=== PATIENT | male | born 1965 | race African-American/Black ===

== ENCOUNTER 2017-01-23 22:47 | Emergency (ER) | payer MEDICAID, OTHER ==
[~2017-01-23] VITALS: Ht 162.6 cm; Wt 84.1 kg
[~2017-01-23 22:47] MED LIST: BENZ1TAB10 PO; LURA40 PO; LURA80 PO; METF500T4 PO; METO50 PO
[2017-01-23 22:57] LABS: GLUCOSE,POINT OF CARE 164 MG/DL (70-110)
[2017-01-23 23:35] LABS: BASOPHILS % (AUTO) 0.3 % (0.0-2.0); EOSINOPHILS % (AUTO) 4.8 % (1.0-6.0); HEMATOCRIT 36.9 % (41-53); HEMOGLOBIN 12.3 g/dL (13.5-17.5); LYMPHOCYTES # (AUTO) 2.6 K/uL (1.0-4.8); MEAN CORPUSCULAR HEMOGLOBIN 28.3 pg (26.0-34.0); MEAN CORPUSCULAR HGB CONC 33.2 G/dL (31.0-37.0); MEAN CORPUSCULAR VOLUME 85 fL (80-100); MONOCYTES # (AUTO) 0.5 K/uL (0.1-1.0); MONOCYTES % (AUTO) 8.8 % (2.0-9.0); NEUTROPHILS # (AUTO) 2.4 K/uL (1.8-7.7); NEUTROPHILS % (AUTO) 41.1 % (40.0-70.0); PLATELET COUNT (AUTO) 211 K/uL (150-450); RED BLOOD CELL COUNT(AUTO) 4.32 MIL/uL (4.50-5.90); RED CELL DISTRIBUTION WIDTH 12.9 % (11.5-14.5); WHITE BLOOD COUNT (AUTO) 5.7 K/uL (4.5-11.0)
[2017-01-23 23:37] LABS: ANION GAP 10 mmol/L (8-16); CALCIUM, TOTAL 8.9 mg/dL (8.8-10.5); CARBON DIOXIDE 24 mmol/L (22-29); CHLORIDE 105 mmol/L (98-107); CREATININE 1.38 mg/dL (0.60-1.30); GLOMERULAR FILTR. RATE CALC > 60 mL/min (>60); POTASSIUM 3.7 mmol/L (3.5-5.1); SODIUM SERUM 139 mmol/L (136-145); UREA NITROGEN, BLOOD 11 mg/dL (7-18)
[2017-01-23 23:43] LABS: ALANINE AMINOTRANSFERASE 28 U/L (12-78); ALBUMIN 3.4 g/dL (3.4-5.0); ASPARTATE AMINOTRANSFERASE 18 U/L (15-37); BILIRUBIN,TOTAL 0.3 mg/dL (0.1-1.0); TOTAL PROTEIN, SERUM 7.4 g/dL (6.4-8.2)
[2017-01-24] MEDS ORDERED: HALOPERIDOL 5 MG TABLET PO ONE (00:30)
[2017-01-24 00:40] VITALS: BP 118/81
== END 2017-01-24 01:16 | disposition home or self-care (01) ==
LOC: EMS 22:48
DX: F25.9 Schizoaffective disorder, unspecified (principal); E11.9 Type 2 diabetes mellitus without complications; F41.9 Anxiety disorder, unspecified; F17.210 Nicotine dependence, cigarettes, uncomplicated; I10 Essential (primary) hypertension; K21.9 Gastro-esophageal reflux disease without esophagitis; Z88.0 Allergy status to penicillin
CPT/HCPCS: 36415; 80053; 80307; 82962; 85025; 99284; G0480

== ENCOUNTER 2017-03-15 19:35 | Emergency (ER) | payer OTHER | END 2017-03-15 21:08 | disposition left against medical advice (07) | LOC: EMS 19:39 | DX: Z53.21 Procedure and treatment not carried out due to patient leaving prior to being seen by health care provider (principal) ==

== ENCOUNTER 2017-03-15 22:31 | Emergency (ER) | payer OTHER ==
[~2017-03-15] VITALS: Ht 165.1 cm; Wt 65.5 kg
[2017-03-15 23:23] LABS: EOSINOPHILS % (AUTO) 3.1 % (1.0-6.0); HEMATOCRIT 37.9 % (41-53); HEMOGLOBIN 12.8 g/dL (13.5-17.5); LYMPHOCYTES # (AUTO) 2.1 K/uL (1.0-4.8); LYMPHOCYTES % (AUTO) 31.3 % (22.0-44.0); MEAN CORPUSCULAR HGB CONC 33.9 G/dL (31.0-37.0); MEAN CORPUSCULAR VOLUME 86 fL (80-100); MONOCYTES # (AUTO) 0.7 K/uL (0.1-1.0); NEUTROPHILS # (AUTO) 3.6 K/uL (1.8-7.7); NEUTROPHILS % (AUTO) 54.6 % (40.0-70.0); PLATELET COUNT (AUTO) 248 K/uL (150-450); RED BLOOD CELL COUNT(AUTO) 4.42 MIL/uL (4.50-5.90); RED CELL DISTRIBUTION WIDTH 12.8 % (11.5-14.5); WHITE BLOOD COUNT (AUTO) 6.6 K/uL (4.5-11.0)
[2017-03-15 23:31] LABS: ANION GAP 11 mmol/L (8-16); CALCIUM, TOTAL 9.2 mg/dL (8.8-10.5); CARBON DIOXIDE 24 mmol/L (22-29); CHLORIDE 105 mmol/L (98-107); CREATININE 1.24 mg/dL (0.60-1.30); GLOMERULAR FILTR. RATE CALC > 60 mL/min (>60); POTASSIUM 3.7 mmol/L (3.5-5.1); SODIUM SERUM 140 mmol/L (136-145); UREA NITROGEN, BLOOD 15 mg/dL (7-18)
[2017-03-15 23:36] LABS: ALANINE AMINOTRANSFERASE 28 U/L (12-78); ALBUMIN 3.7 g/dL (3.4-5.0); ASPARTATE AMINOTRANSFERASE 17 U/L (15-37); BILIRUBIN,TOTAL 0.4 mg/dL (0.1-1.0)
[2017-03-16 01:49] VITALS: BP 127/72
== END 2017-03-16 01:53 | disposition home or self-care (01) ==
LOC: EMS 22:32
DX: F41.9 Anxiety disorder, unspecified (principal); E11.9 Type 2 diabetes mellitus without complications; I10 Essential (primary) hypertension; K21.9 Gastro-esophageal reflux disease without esophagitis; F20.9 Schizophrenia, unspecified; Z88.0 Allergy status to penicillin; F17.210 Nicotine dependence, cigarettes, uncomplicated
CPT/HCPCS: 36415; 80053; 80307; 85025; 99284; G0480

== ENCOUNTER 2019-04-27 12:37 | Emergency (ER) | payer MEDICAID, OTHER ==
[~2019-04-27] VITALS: Ht 162.6 cm; Wt 85.9 kg
[~2019-04-27 12:37] MED LIST changes: +METF-444 PO; -METF500T4 PO
[2019-04-27] MEDS ORDERED: RISP2 PO (12:44)
[2019-04-27 16:45] LABS: BASOPHILS % (AUTO) 0.8 % (0.0-2.0); HEMATOCRIT 39.3 % (41-53); HEMOGLOBIN 12.6 g/dL (13.5-17.5); LYMPHOCYTES # (AUTO) 1.8 K/uL (1.0-4.8); LYMPHOCYTES % (AUTO) 30.3 % (22.0-44.0); MEAN CORPUSCULAR HEMOGLOBIN 26.7 pg (26.0-34.0); MEAN CORPUSCULAR HGB CONC 32.1 G/dL (31.0-37.0); MEAN CORPUSCULAR VOLUME 83 fL (80-100); MONOCYTES # (AUTO) 0.9 K/uL (0.1-1.0); MONOCYTES % (AUTO) 15.5 % (2.0-9.0); NEUTROPHILS # (AUTO) 2.9 K/uL (1.8-7.7); NEUTROPHILS % (AUTO) 48.4 % (40.0-70.0); PLATELET COUNT (AUTO) 250 K/uL (150-450); RED BLOOD CELL COUNT(AUTO) 4.73 MIL/uL (4.50-5.90); RED CELL DISTRIBUTION WIDTH 14.3 % (11.5-14.5)
[2019-04-27 17:01] LABS: ANION GAP 8 mmol/L (8-16); CALCIUM, TOTAL 8.3 mg/dL (8.8-10.5); CARBON DIOXIDE 26 mmol/L (22-29); CHLORIDE 107 mmol/L (98-107); CREATININE 0.87 mg/dL (0.60-1.30); GLOMERULAR FILTR. RATE CALC > 60 mL/min (>60); GLUCOSE,RANDOM 144 mg/dL (70-110); POTASSIUM 3.7 mmol/L (3.5-5.1); SODIUM SERUM 141 mmol/L (136-145); UREA NITROGEN, BLOOD 8 mg/dL (7-18)
[2019-04-27 17:06] LABS: PROTHROMBIN TIME 10.3 SEC (9.4-11.6)
[2019-04-27 17:08] LABS: ALANINE AMINOTRANSFERASE 31 U/L (12-78); ALBUMIN 3.2 g/dL (3.4-5.0); ALKALINE PHOSPHATASE 80 U/L (46-116); ASPARTATE AMINOTRANSFERASE 20 U/L (15-37); BILIRUBIN,TOTAL 0.4 mg/dL (0.1-1.0); TOTAL PROTEIN, SERUM 7.2 g/dL (6.4-8.2)
[2019-04-27 17:17] LABS: B-TYPE NATRIURETIC PEPTIDE 15 pg/mL (0-100)
[2019-04-27 19:06] VITALS: BP 154/92
== END 2019-04-27 19:20 | disposition home or self-care (01) ==
LOC: EMS 12:38
DX: R60.0 Localized edema (principal); E11.9 Type 2 diabetes mellitus without complications; I10 Essential (primary) hypertension; K21.9 Gastro-esophageal reflux disease without esophagitis; F20.9 Schizophrenia, unspecified; F17.210 Nicotine dependence, cigarettes, uncomplicated; Z79.899 Other long term (current) drug therapy; Z88.0 Allergy status to penicillin; Z95.0 Presence of cardiac pacemaker; Z79.84 Long term (current) use of oral hypoglycemic drugs
CPT/HCPCS: 93005; 93970

== ENCOUNTER 2019-06-05 07:52 | Emergency (ER) | payer MEDICAID, OTHER ==
[~2019-06-05] VITALS: Ht 162.6 cm; Wt 87.3 kg
[~2019-06-05 07:52] MED LIST changes: -BENZ1TAB10 PO; +RISP2 PO
[2019-06-05 08:20] LABS: GLUCOSE,POINT OF CARE 132 MG/DL (70-110)
[2019-06-05 10:48] VITALS: BP 151/96
== END 2019-06-05 10:55 | disposition home or self-care (01) ==
LOC: EMS 07:55
DX: F41.9 Anxiety disorder, unspecified (principal); E11.9 Type 2 diabetes mellitus without complications; K21.9 Gastro-esophageal reflux disease without esophagitis; I10 Essential (primary) hypertension; F20.9 Schizophrenia, unspecified; F17.210 Nicotine dependence, cigarettes, uncomplicated; Z88.0 Allergy status to penicillin; Z79.84 Long term (current) use of oral hypoglycemic drugs
CPT/HCPCS: 93005

== ENCOUNTER 2019-07-30 20:48 | Emergency (ER) | payer OTHER ==
[~2019-07-30] VITALS: Ht 162.6 cm; Wt 81.4 kg
[2019-07-30 21:25] LABS: GLUCOSE,POINT OF CARE 106 MG/DL (70-110)
[2019-07-30 22:07] LABS: BASOPHILS % (AUTO) 0.8 % (0.0-2.0); EOSINOPHILS % (AUTO) 5.4 % (1.0-6.0); HEMATOCRIT 36.7 % (41-53); HEMOGLOBIN 12.1 g/dL (13.5-17.5); LYMPHOCYTES # (AUTO) 1.9 K/uL (1.0-4.8); LYMPHOCYTES % (AUTO) 36.8 % (22.0-44.0); MEAN CORPUSCULAR HEMOGLOBIN 27.6 pg (26.0-34.0); MEAN CORPUSCULAR HGB CONC 32.9 G/dL (31.0-37.0); MEAN CORPUSCULAR VOLUME 84 fL (80-100); MONOCYTES # (AUTO) 0.6 K/uL (0.1-1.0); MONOCYTES % (AUTO) 12.2 % (2.0-9.0); NEUTROPHILS # (AUTO) 2.3 K/uL (1.8-7.7); NEUTROPHILS % (AUTO) 44.8 % (40.0-70.0); PLATELET COUNT (AUTO) 224 K/uL (150-450); RED BLOOD CELL COUNT(AUTO) 4.37 MIL/uL (4.50-5.90); RED CELL DISTRIBUTION WIDTH 13.7 % (11.5-14.5)
[2019-07-30 22:25] LABS: ANION GAP 8 mmol/L (8-16); CALCIUM, TOTAL 9.1 mg/dL (8.8-10.5); CARBON DIOXIDE 28 mmol/L (22-29); CHLORIDE 106 mmol/L (98-107); CREATININE 1.08 mg/dL (0.60-1.30); GLOMERULAR FILTR. RATE CALC > 60 mL/min (>60); GLUCOSE,RANDOM 102 mg/dL (70-110); POTASSIUM 4.1 mmol/L (3.5-5.1); SODIUM SERUM 142 mmol/L (136-145); UREA NITROGEN, BLOOD 23 mg/dL (7-18)
[2019-07-30 22:31] LABS: ALANINE AMINOTRANSFERASE 31 U/L (12-78); ALBUMIN 3.4 g/dL (3.4-5.0); ALKALINE PHOSPHATASE 81 U/L (46-116); ASPARTATE AMINOTRANSFERASE 17 U/L (15-37); BILIRUBIN,TOTAL 0.3 mg/dL (0.1-1.0)
[2019-07-30 23:26] VITALS: BP 120/82
[2019-07-31] MEDS ORDERED: LORazepam 2 MG TABLET PO ONE (02:15)
== END 2019-07-31 02:59 | disposition home or self-care (01) ==
LOC: EMS 20:51
DX: F20.0 Paranoid schizophrenia (principal); E11.9 Type 2 diabetes mellitus without complications; I10 Essential (primary) hypertension; K21.9 Gastro-esophageal reflux disease without esophagitis; F17.210 Nicotine dependence, cigarettes, uncomplicated; Z95.0 Presence of cardiac pacemaker; Z79.899 Other long term (current) drug therapy; Z79.84 Long term (current) use of oral hypoglycemic drugs; Z88.0 Allergy status to penicillin
CPT/HCPCS: 36415; 80053; 82962; 85025; 99284; 99406; G0480

== ENCOUNTER 2019-08-06 22:08 | Inpatient (IN) | payer MEDICAID, OTHER ==
[~2019-08-06] VITALS: Ht 162.6 cm; Wt 69.6 kg
[~2019-08-06 22:08] MED LIST changes: -RISP2 PO
[2019-08-06 23:39] LABS: GLUCOSE,POINT OF CARE 89 MG/DL (70-110)
[2019-08-06 23:45] LABS: BASOPHILS % (AUTO) 0.7 % (0.0-2.0); EOSINOPHILS % (AUTO) 3.7 % (1.0-6.0); HEMATOCRIT 39.2 % (41-53); HEMOGLOBIN 12.8 g/dL (13.5-17.5); LYMPHOCYTES # (AUTO) 1.9 K/uL (1.0-4.8); LYMPHOCYTES % (AUTO) 41.1 % (22.0-44.0); MEAN CORPUSCULAR HEMOGLOBIN 27.6 pg (26.0-34.0); MEAN CORPUSCULAR HGB CONC 32.6 G/dL (31.0-37.0); MEAN CORPUSCULAR VOLUME 85 fL (80-100); MONOCYTES # (AUTO) 0.6 K/uL (0.1-1.0); MONOCYTES % (AUTO) 13.3 % (2.0-9.0); NEUTROPHILS # (AUTO) 1.9 K/uL (1.8-7.7); NEUTROPHILS % (AUTO) 41.2 % (40.0-70.0); PLATELET COUNT (AUTO) 282 K/uL (150-450); RED BLOOD CELL COUNT(AUTO) 4.64 MIL/uL (4.50-5.90); RED CELL DISTRIBUTION WIDTH 13.9 % (11.5-14.5)
[2019-08-06 23:57] LABS: ANION GAP 6 mmol/L (8-16); CALCIUM, TOTAL 9.4 mg/dL (8.8-10.5); CARBON DIOXIDE 28 mmol/L (22-29); CHLORIDE 104 mmol/L (98-107); CREATININE 1.09 mg/dL (0.60-1.30); GLOMERULAR FILTR. RATE CALC > 60 mL/min (>60); GLUCOSE,RANDOM 98 mg/dL (70-110); POTASSIUM 3.5 mmol/L (3.5-5.1); SODIUM SERUM 138 mmol/L (136-145)
[2019-08-07 00:09] LABS: ALANINE AMINOTRANSFERASE 24 U/L (12-78); ALBUMIN 3.8 g/dL (3.4-5.0); ALKALINE PHOSPHATASE 81 U/L (46-116); ASPARTATE AMINOTRANSFERASE 15 U/L (15-37); BILIRUBIN,TOTAL 0.6 mg/dL (0.1-1.0); TOTAL PROTEIN, SERUM 7.6 g/dL (6.4-8.2)
[2019-08-07 00:09] LABS: AMPHET/METH SCREEN,URINE NEGATIVE (NEGATIVE); BARBITURATE SCREEN, URINE NEGATIVE (NEGATIVE); BENZODIAZEPINES SCREEN,URINE NEGATIVE (NEGATIVE); CANNABINOID SCREEN,URINE NEGATIVE (NEGATIVE); COCAINE SCREEN,URINE NEGATIVE (NEGATIVE); METHADONE SCREEN, URINE NEGATIVE (NEGATIVE); OPIATE SCREEN,URINE NEGATIVE (NEGATIVE)
[2019-08-07 00:10] LABS: PHENCYCLIDINE SCREEN,URINE NEGATIVE (NEGATIVE)
[2019-08-07 00:23] LABS: UREA NITROGEN, BLOOD 11 mg/dL (7-18)
[2019-08-07] MEDS ORDERED: LORazepam 2 MG TABLET PO PRN (02:00)
[2019-08-07] MEDS ORDERED: ZOLPIDEM TARTRATE 10 MG TABLET PO PRN (02:00)
[2019-08-07] MEDS ORDERED: QUEtiapine FUMARATE 100 MG TABLET PO PRN (02:00)
[2019-08-07 03:16] LABS: APPEARANCE,URINE CLEAR (CLEAR); BILIRUBIN,URINE NEGATIVE (NEGATIVE); GLUCOSE, URINE (UA) NEGATIVE (NEGATIVE); KETONES,URINE NEGATIVE (NEGATIVE); LEUKOCYTE ESTERASE ,URINE NEGATIVE (NEGATIVE); NITRATE,URINE NEGATIVE (NEGATIVE); OCCULT BLOOD,URINE NEGATIVE (NEGATIVE); PROTEIN,URINE NEGATIVE (NEGATIVE)
[2019-08-07 04:01] VITALS: BP 147/99
[2019-08-07] MEDS ORDERED: INFLUENZA VIRUS VACCINE QVS 2019-20 (3YR+)/PF 60 MCG/0.5 ML SYRINGE IM ONE (05:00)
[2019-08-07] MEDS ORDERED: PNEUMOCOCCAL VACCINE POLYVALENT 0.5 ML VIAL [PPSV23] IM ONE (05:00)
[2019-08-07] MEDS ORDERED: LURASIDONE HCL 40 MG TABLET PO SCH (07:30)
[2019-08-07 08:00] VITALS: BP 147/94
[2019-08-07] MEDS ORDERED: LOPERAMIDE HCL 2 MG CAPSULE PO PRN (12:15)
[2019-08-07] MEDS ORDERED: PROMETHAZINE HCL 25 MG TABLET PO PRN (12:15)
[2019-08-07] MEDS ORDERED: OLANZapine 5 MG RAPDIS TABLET PO PRN (12:15)
[2019-08-07] MEDS ORDERED: HydrOXYzine PAMOATE 50 MG CAPSULE PO PRN (12:15)
[2019-08-07] MEDS ORDERED: GuaiFENesin/D-METHORPHAN [SUGAR-FREE] 200-20MG/10 ML SYRUP UDCUP PO PRN (12:15)
[2019-08-07] MEDS ORDERED: TUBERCULIN, PURIFIED PROTEIN DERIVATIVE 5 TU/0.1 ML SYRINGE ID ONE (12:15)
[2019-08-07] MEDS ORDERED: ACETAMINOPHEN 325 MG TABLET PO PRN (12:15)
[2019-08-07] MEDS ORDERED: MAG HYDROX/AL HYDROX/SIMETH ES 30 ML SUSPENSION UDCUP PO PRN (12:15)
[2019-08-07] MEDS ORDERED: MAGNESIUM HYDROXIDE SUSPENSION 30 ML UDCUP PO PRN (12:15)
[2019-08-07] MEDS: THIAMINE HCL 100 MG TABLET PO SCH (16:05)
[2019-08-07] MEDS ORDERED: LURASIDONE HCL 80 MG TABLET PO SCH (17:30)
[2019-08-07] MEDS ORDERED: GLUCAGON,HUMAN RECOMBINANT 1 MG VIAL IM PRN (17:45)
[2019-08-07] MEDS ORDERED: INSULIN LISPRO 100 UNITS/ML SQ PRN (17:45)
[2019-08-07] MEDS ORDERED: DEXTROSE 50%-WATER 25 GM/50 ML SYRINGE IVP PRN (18:00)
[2019-08-07 20:31] VITALS: BP 147/92
[2019-08-07] MEDS ORDERED: OLANZapine 5 MG RAPDIS TABLET PO SCH (21:00)
[2019-08-07 21:56] LABS: GLUCOMETER DEV NAME(LOC) 3E.I 2; GLUCOSE,POINT OF CARE 63 MG/DL (70-110)
[2019-08-07 21:56] LABS: GLUCOMETER DEV NAME(LOC) 3E.I 2; GLUCOSE,POINT OF CARE 84 MG/DL (70-110)
[2019-08-08 05:26] VITALS: BP 128/95
[2019-08-08 05:48] LABS: GLUCOMETER DEV NAME(LOC) 3E.I 2; GLUCOSE,POINT OF CARE 70 MG/DL (70-110)
[2019-08-08] MEDS: MetFORMIN HCL 500 MG TABLET PO SCH ×2 (06:51→17:30)
[2019-08-08 07:47] LABS: HEMOGLOBIN A1C 6.5 % (4.5-6.2)
[2019-08-08 08:01] LABS: CHOL/HDL RATIO 3.1 (4.2-7.3); FREE T4 (FREE THYROXINE) 1.25 ng/dL (0.76-1.46); THYROID STIMULATING HORMONE 0.83 uIU/mL (0.36-3.74)
[2019-08-08 09:08] VITALS: BP 145/73
[2019-08-08] MEDS: FOLIC ACID 1 MG TABLET PO SCH (09:59)
[2019-08-08] MEDS: THIAMINE HCL 100 MG TABLET PO SCH ×2 (10:00→16:54)
[2019-08-08] MEDS: MULTIVITAMINS WITH MINERALS, THERAPEUTIC TABLET PO SCH (10:00)
[2019-08-08] MEDS: METOPROLOL TARTRATE 50 MG TABLET PO SCH (10:00)
[2019-08-08 11:10] LABS: GLUCOMETER DEV NAME(LOC) 3E.I 2; GLUCOSE,POINT OF CARE 81 MG/DL (70-110)
[2019-08-08 17:03] LABS: GLUCOMETER DEV NAME(LOC) 3E.I 2; GLUCOSE,POINT OF CARE 62 MG/DL (70-110)
[2019-08-08 19:08] VITALS: BP 148/97
[2019-08-08] MEDS ORDERED: OLANZapine 10 MG RAPDIS TABLET PO SCH (21:00)
[2019-08-08 21:17] LABS: GLUCOMETER DEV NAME(LOC) 3E.I 2; GLUCOSE,POINT OF CARE 114 MG/DL (70-110)
[2019-08-09 05:51] LABS: GLUCOMETER DEV NAME(LOC) 3E.I 2; GLUCOSE,POINT OF CARE 95 MG/DL (70-110)
[2019-08-09] MEDS: MetFORMIN HCL 500 MG TABLET PO SCH ×2 (06:49→17:11)
[2019-08-09] MEDS: THIAMINE HCL 100 MG TABLET PO SCH ×2 (09:18→17:11)
[2019-08-09] MEDS: METOPROLOL TARTRATE 50 MG TABLET PO SCH (09:18)
[2019-08-09] MEDS: FOLIC ACID 1 MG TABLET PO SCH (09:18)
[2019-08-09] MEDS: MULTIVITAMINS WITH MINERALS, THERAPEUTIC TABLET PO SCH (09:18)
[2019-08-09 09:27] VITALS: BP 140/93
[2019-08-09 10:39] LABS: GLUCOMETER DEV NAME(LOC) 3E.I 2; GLUCOSE,POINT OF CARE 147 MG/DL (70-110)
[2019-08-09] MEDS: INSULIN LISPRO 100 UNITS/ML SQ PRN (12:22)
[2019-08-09 16:13] LABS: GLUCOMETER DEV NAME(LOC) 3E.I 2; GLUCOSE,POINT OF CARE 85 MG/DL (70-110)
[2019-08-09 17:16] VITALS: BP 148/93
[2019-08-09] MEDS ORDERED: RisperiDONE MICROSPHERES 50 MG/2 ML SYRINGE IM ONE (18:15)
[2019-08-09 21:39] LABS: GLUCOMETER DEV NAME(LOC) 3E.I 2; GLUCOSE,POINT OF CARE 99 MG/DL (70-110)
[2019-08-09] MEDS: RisperiDONE 3 MG TABLET PO SCH (21:39)
[2019-08-10 05:04] VITALS: BP 138/84
[2019-08-10 06:12] LABS: GLUCOMETER DEV NAME(LOC) 3E.I 2; GLUCOSE,POINT OF CARE 113 MG/DL (70-110)
[2019-08-10] MEDS: MetFORMIN HCL 500 MG TABLET PO SCH ×2 (07:03→17:01)
[2019-08-10 09:32] VITALS: BP 151/92
[2019-08-10] MEDS: MULTIVITAMINS WITH MINERALS, THERAPEUTIC TABLET PO SCH (09:49)
[2019-08-10] MEDS: FLUoxetine HCL 20 MG CAPSULE PO SCH (09:49)
[2019-08-10] MEDS: THIAMINE HCL 100 MG TABLET PO SCH ×2 (09:49→17:01)
[2019-08-10] MEDS: FOLIC ACID 1 MG TABLET PO SCH (09:49)
[2019-08-10] MEDS: METOPROLOL TARTRATE 50 MG TABLET PO SCH (09:49)
[2019-08-10 17:20] LABS: GLUCOMETER DEV NAME(LOC) 3E.I 2; GLUCOSE,POINT OF CARE 109 MG/DL (70-110)
[2019-08-10 20:51] VITALS: BP 137/85
[2019-08-10] MEDS: RisperiDONE 3 MG TABLET PO SCH (21:21)
[2019-08-10 21:53] LABS: GLUCOMETER DEV NAME(LOC) 3E.I 2; GLUCOSE,POINT OF CARE 121 MG/DL (70-110)
[2019-08-11 05:48] LABS: GLUCOMETER DEV NAME(LOC) 3E.I 2; GLUCOSE,POINT OF CARE 94 MG/DL (70-110)
[2019-08-11 05:49] VITALS: BP 121/78
[2019-08-11] MEDS: MetFORMIN HCL 500 MG TABLET PO SCH ×2 (06:58→17:21)
[2019-08-11 08:25] VITALS: BP 122/80
[2019-08-11] MEDS: MULTIVITAMINS WITH MINERALS, THERAPEUTIC TABLET PO SCH (12:56)
[2019-08-11] MEDS: METOPROLOL TARTRATE 50 MG TABLET PO SCH (12:56)
[2019-08-11] MEDS: FLUoxetine HCL 20 MG CAPSULE PO SCH (12:56)
[2019-08-11] MEDS: THIAMINE HCL 100 MG TABLET PO SCH ×2 (12:57→17:21)
[2019-08-11] MEDS: FOLIC ACID 1 MG TABLET PO SCH (12:57)
[2019-08-11 13:04] LABS: GLUCOMETER DEV NAME(LOC) 3E.I 2; GLUCOSE,POINT OF CARE 99 MG/DL (70-110)
[2019-08-11 18:23] VITALS: BP 121/83
[2019-08-11] MEDS: RisperiDONE 2 MG TABLET PO PRN ×2 (21:07→21:16)
[2019-08-11] MEDS: RisperiDONE 3 MG TABLET PO SCH (21:15)
[2019-08-11 22:02] LABS: GLUCOMETER DEV NAME(LOC) 3E.I 2; GLUCOSE,POINT OF CARE 88 MG/DL (70-110)
[2019-08-12 01:55] VITALS: BP 121/80
[2019-08-12 05:58] LABS: GLUCOMETER DEV NAME(LOC) 3E.I 2; GLUCOSE,POINT OF CARE 80 MG/DL (70-110)
[2019-08-12] MEDS: MetFORMIN HCL 500 MG TABLET PO SCH ×2 (06:51→17:30)
[2019-08-12 08:30] VITALS: BP 118/84
[2019-08-12] MEDS: RisperiDONE 2 MG TABLET PO PRN (08:59)
[2019-08-12] MEDS: THIAMINE HCL 100 MG TABLET PO SCH ×2 (08:59→16:23)
[2019-08-12] MEDS: MULTIVITAMINS WITH MINERALS, THERAPEUTIC TABLET PO SCH (08:59)
[2019-08-12] MEDS: METOPROLOL TARTRATE 50 MG TABLET PO SCH (08:59)
[2019-08-12] MEDS: FOLIC ACID 1 MG TABLET PO SCH (08:59)
[2019-08-12] MEDS: FLUoxetine HCL 20 MG CAPSULE PO SCH (08:59)
[2019-08-12 12:09] LABS: GLUCOMETER DEV NAME(LOC) 3E.I 2; GLUCOSE,POINT OF CARE 87 MG/DL (70-110)
[2019-08-12 16:49] LABS: GLUCOMETER DEV NAME(LOC) 3E.I 2; GLUCOSE,POINT OF CARE 97 MG/DL (70-110)
[2019-08-12 19:01] VITALS: BP 115/70
[2019-08-12] MEDS: RisperiDONE 3 MG TABLET PO SCH (20:37)
[2019-08-12 21:01] LABS: GLUCOMETER DEV NAME(LOC) 3E.I 2; GLUCOSE,POINT OF CARE 122 MG/DL (70-110)
[2019-08-13 04:33] VITALS: BP 115/82
[2019-08-13 05:23] LABS: GLUCOMETER DEV NAME(LOC) 3E.I 2; GLUCOSE,POINT OF CARE 152 MG/DL (70-110)
[2019-08-13] MEDS: MetFORMIN HCL 500 MG TABLET PO SCH ×2 (06:41→17:56)
[2019-08-13] MEDS: INSULIN LISPRO 100 UNITS/ML SQ PRN (06:45)
[2019-08-13 09:21] VITALS: BP_SYST 128; BP_SYST 148; BP_DIAS 72; BP_DIAS 98
[2019-08-13] MEDS: METOPROLOL TARTRATE 50 MG TABLET PO SCH (09:28)
[2019-08-13] MEDS: MULTIVITAMINS WITH MINERALS, THERAPEUTIC TABLET PO SCH (09:28)
[2019-08-13] MEDS: FLUoxetine HCL 20 MG CAPSULE PO SCH (09:28)
[2019-08-13] MEDS: THIAMINE HCL 100 MG TABLET PO SCH ×2 (09:28→17:56)
[2019-08-13] MEDS: FOLIC ACID 1 MG TABLET PO SCH (09:28)
[2019-08-13 11:02] LABS: GLUCOMETER DEV NAME(LOC) 3E.I 2; GLUCOSE,POINT OF CARE 94 MG/DL (70-110)
[2019-08-13 17:03] LABS: GLUCOMETER DEV NAME(LOC) 3E.I 2; GLUCOSE,POINT OF CARE 139 MG/DL (70-110)
[2019-08-13 21:13] VITALS: BP 149/89
[2019-08-13] MEDS: RisperiDONE 3 MG TABLET PO SCH (21:16)
[2019-08-13 21:30] LABS: GLUCOMETER DEV NAME(LOC) 3E.I 2; GLUCOSE,POINT OF CARE 105 MG/DL (70-110)
[2019-08-14 06:07] LABS: GLUCOMETER DEV NAME(LOC) 3E.I 2; GLUCOSE,POINT OF CARE 124 MG/DL (70-110)
[2019-08-14] MEDS: MetFORMIN HCL 500 MG TABLET PO SCH ×2 (06:53→17:17)
[2019-08-14] MEDS: METOPROLOL TARTRATE 50 MG TABLET PO SCH (08:25)
[2019-08-14] MEDS: FOLIC ACID 1 MG TABLET PO SCH (08:25)
[2019-08-14] MEDS: FLUoxetine HCL 20 MG CAPSULE PO SCH (08:25)
[2019-08-14] MEDS: THIAMINE HCL 100 MG TABLET PO SCH ×2 (08:25→17:17)
[2019-08-14] MEDS: MULTIVITAMINS WITH MINERALS, THERAPEUTIC TABLET PO SCH (08:25)
[2019-08-14 09:49] VITALS: BP 159/100
[2019-08-14 11:09] LABS: GLUCOMETER DEV NAME(LOC) 3E.I 2; GLUCOSE,POINT OF CARE 124 MG/DL (70-110)
[2019-08-14 16:30] VITALS: BP 134/76
[2019-08-14 17:49] LABS: GLUCOMETER DEV NAME(LOC) 3E.I 2; GLUCOSE,POINT OF CARE 108 MG/DL (70-110)
[2019-08-14] MEDS: RisperiDONE 3 MG TABLET PO SCH (19:48)
[2019-08-14 20:43] LABS: GLUCOMETER DEV NAME(LOC) 3E.I 2; GLUCOSE,POINT OF CARE 108 MG/DL (70-110)
[2019-08-15 05:58] LABS: GLUCOMETER DEV NAME(LOC) 3E.I 2; GLUCOSE,POINT OF CARE 100 MG/DL (70-110)
[2019-08-15] MEDS: MetFORMIN HCL 500 MG TABLET PO SCH ×2 (07:06→17:36)
[2019-08-15] MEDS: FOLIC ACID 1 MG TABLET PO SCH (08:26)
[2019-08-15] MEDS: THIAMINE HCL 100 MG TABLET PO SCH ×2 (08:26→17:36)
[2019-08-15] MEDS: METOPROLOL TARTRATE 50 MG TABLET PO SCH (08:26)
[2019-08-15] MEDS: FLUoxetine HCL 20 MG CAPSULE PO SCH (08:26)
[2019-08-15] MEDS: MULTIVITAMINS WITH MINERALS, THERAPEUTIC TABLET PO SCH (08:26)
[2019-08-15 09:02] VITALS: BP 146/92
[2019-08-15 11:21] LABS: GLUCOMETER DEV NAME(LOC) 3E.I 2; GLUCOSE,POINT OF CARE 77 MG/DL (70-110)
[2019-08-15 16:37] VITALS: BP 140/86
[2019-08-15 17:32] LABS: GLUCOMETER DEV NAME(LOC) 3E.I 2; GLUCOSE,POINT OF CARE 79 MG/DL (70-110)
[2019-08-15] MEDS: RisperiDONE 3 MG TABLET PO SCH (21:01)
[2019-08-15 21:44] LABS: GLUCOMETER DEV NAME(LOC) 3E.I 2; GLUCOSE,POINT OF CARE 116 MG/DL (70-110)
[2019-08-16 06:17] LABS: GLUCOMETER DEV NAME(LOC) 3E.I 2; GLUCOSE,POINT OF CARE 170 MG/DL (70-110)
[2019-08-16] MEDS: MetFORMIN HCL 500 MG TABLET PO SCH ×2 (06:43→16:59)
[2019-08-16] MEDS: INSULIN LISPRO 100 UNITS/ML SQ PRN (06:44)
[2019-08-16] MEDS: THIAMINE HCL 100 MG TABLET PO SCH ×2 (08:40→16:59)
[2019-08-16] MEDS: FLUoxetine HCL 20 MG CAPSULE PO SCH (08:40)
[2019-08-16] MEDS: METOPROLOL TARTRATE 50 MG TABLET PO SCH (08:40)
[2019-08-16] MEDS: FOLIC ACID 1 MG TABLET PO SCH (08:40)
[2019-08-16] MEDS: MULTIVITAMINS WITH MINERALS, THERAPEUTIC TABLET PO SCH (08:41)
[2019-08-16 09:25] VITALS: BP 159/95
[2019-08-16 12:08] LABS: GLUCOMETER DEV NAME(LOC) 3E.I 2; GLUCOSE,POINT OF CARE 83 MG/DL (70-110)
[2019-08-16 17:00] VITALS: BP 146/88
[2019-08-16] MEDS: RisperiDONE 3 MG TABLET PO SCH (20:40)
[2019-08-17 05:53] LABS: GLUCOMETER DEV NAME(LOC) 3E.I 2; GLUCOSE,POINT OF CARE 187 MG/DL (70-110)
[2019-08-17] MEDS: MetFORMIN HCL 500 MG TABLET PO SCH ×2 (06:48→16:40)
[2019-08-17] MEDS: INSULIN LISPRO 100 UNITS/ML SQ PRN (06:57)
[2019-08-17 09:03] VITALS: BP 140/83
[2019-08-17] MEDS: FOLIC ACID 1 MG TABLET PO SCH (09:33)
[2019-08-17] MEDS: METOPROLOL TARTRATE 50 MG TABLET PO SCH (09:33)
[2019-08-17] MEDS: THIAMINE HCL 100 MG TABLET PO SCH (09:33)
[2019-08-17] MEDS: MULTIVITAMINS WITH MINERALS, THERAPEUTIC TABLET PO SCH (09:33)
[2019-08-17] MEDS: FLUoxetine HCL 20 MG CAPSULE PO SCH (09:33)
[2019-08-17 11:11] LABS: GLUCOMETER DEV NAME(LOC) 3E.I 2; GLUCOSE,POINT OF CARE 98 MG/DL (70-110)
[2019-08-17 16:34] VITALS: BP 105/94
[2019-08-17 16:52] LABS: GLUCOMETER DEV NAME(LOC) 3E.I 2; GLUCOSE,POINT OF CARE 86 MG/DL (70-110)
[2019-08-17] MEDS: RisperiDONE 3 MG TABLET PO SCH (20:13)
[2019-08-17 20:30] LABS: GLUCOMETER DEV NAME(LOC) 3E.I 2; GLUCOSE,POINT OF CARE 130 MG/DL (70-110)
[2019-08-18 05:54] LABS: GLUCOMETER DEV NAME(LOC) 3E.I 2; GLUCOSE,POINT OF CARE 158 MG/DL (70-110)
[2019-08-18] MEDS: INSULIN LISPRO 100 UNITS/ML SQ PRN ×2 (06:32→20:38)
[2019-08-18] MEDS: MetFORMIN HCL 500 MG TABLET PO SCH ×2 (06:33→16:36)
[2019-08-18] MEDS: FLUoxetine HCL 20 MG CAPSULE PO SCH (08:46)
[2019-08-18] MEDS: MULTIVITAMINS WITH MINERALS, THERAPEUTIC TABLET PO SCH (08:46)
[2019-08-18] MEDS: METOPROLOL TARTRATE 50 MG TABLET PO SCH (08:46)
[2019-08-18 09:41] VITALS: BP 148/106
[2019-08-18 11:10] LABS: GLUCOMETER DEV NAME(LOC) 3E.I 2; GLUCOSE,POINT OF CARE 103 MG/DL (70-110)
[2019-08-18 16:41] LABS: GLUCOMETER DEV NAME(LOC) 3E.I 2; GLUCOSE,POINT OF CARE 86 MG/DL (70-110)
[2019-08-18 17:30] VITALS: BP 145/80
[2019-08-18] MEDS: RisperiDONE 3 MG TABLET PO SCH (20:32)
[2019-08-18 20:48] LABS: GLUCOMETER DEV NAME(LOC) 3E.I 2; GLUCOSE,POINT OF CARE 156 MG/DL (70-110)
[2019-08-19 05:55] LABS: GLUCOMETER DEV NAME(LOC) 3E.I 2; GLUCOSE,POINT OF CARE 157 MG/DL (70-110)
[2019-08-19] MEDS: INSULIN LISPRO 100 UNITS/ML SQ PRN (06:32)
[2019-08-19] MEDS: MetFORMIN HCL 500 MG TABLET PO SCH (06:32)
[2019-08-19] MEDS: MULTIVITAMINS WITH MINERALS, THERAPEUTIC TABLET PO SCH (08:20)
[2019-08-19] MEDS: FLUoxetine HCL 20 MG CAPSULE PO SCH (08:21)
[2019-08-19] MEDS: METOPROLOL TARTRATE 50 MG TABLET PO SCH (08:21)
[2019-08-19 08:48] VITALS: BP 146/87
[2019-08-19] MEDS ORDERED: FLUO-191 PO (09:28)
[2019-08-19] MEDS ORDERED: RISP3 PO (09:29)
[2019-08-19] MEDS ORDERED: RISPC50 IM (09:29)
[2019-08-19] MEDS ORDERED: MULT-723 PO (09:43)
[2019-08-19 11:18] LABS: GLUCOMETER DEV NAME(LOC) 3E.I 2; GLUCOSE,POINT OF CARE 99 MG/DL (70-110)
[2019-08-23] MEDS ORDERED: RisperiDONE MICROSPHERES 50 MG/2 ML SYRINGE IM SCH (09:00)
== END 2019-08-19 14:30 | disposition home or self-care (01) | DRG 885 ==
LOC: EMS 22:08 → 3EI 08-07 02:00
PROVIDERS: ADMIT Psychiatry & Neurology Psychiatry; ATTEND Psychiatry & Neurology Psychiatry
DX: F20.0 Paranoid schizophrenia (principal); I42.9 Cardiomyopathy, unspecified; E11.9 Type 2 diabetes mellitus without complications; I10 Essential (primary) hypertension; D64.9 Anemia, unspecified; F17.210 Nicotine dependence, cigarettes, uncomplicated; K21.9 Gastro-esophageal reflux disease without esophagitis; Z91.19 Patient's noncompliance with other medical treatment and regimen; Z95.0 Presence of cardiac pacemaker; Z86.11 Personal history of tuberculosis; Z59.0 Homelessness; Z82.49 Family history of ischemic heart disease and other diseases of the circulatory system; Z79.899 Other long term (current) drug therapy; Z88.0 Allergy status to penicillin
CPT/HCPCS: 83036; 84439; 84443; 86592; G0480; J2794

== ENCOUNTER 2020-01-23 15:37 | Emergency (ER) | payer OTHER ==
[~2020-01-23] VITALS: Ht 162.6 cm; Wt 76.4 kg
[~2020-01-23 15:37] MED LIST changes: +FLUO-191 PO; +HYD50 PO; -LURA40 PO; -LURA80 PO; +LURA80TA2 PO; -METF-444 PO; +OLAN10TA3 PO; +RISP2TAB23 PO; +RISPC50 IM
[2020-01-23 19:15] VITALS: BP 139/88
== END 2020-01-23 20:14 | disposition home or self-care (01) ==
LOC: EMS 15:39
DX: F20.9 Schizophrenia, unspecified (principal); E11.9 Type 2 diabetes mellitus without complications; I10 Essential (primary) hypertension; Z88.0 Allergy status to penicillin; Z79.899 Other long term (current) drug therapy

== ENCOUNTER 2020-04-10 13:15 | Emergency (ER) | payer OTHER ==
[~2020-04-10] VITALS: Ht 167.6 cm; Wt 79.5 kg
[2020-04-10] MEDS ORDERED: KETOROLAC TROMETHAMINE 60 MG/2 ML VIAL IM ONE (13:45)
[2020-04-10 13:59] LABS: BASOPHILS % (AUTO) 0.9 % (0.0-2.0); EOSINOPHILS % (AUTO) 3.7 % (1.0-6.0); HEMATOCRIT 39.3 % (41-53); HEMOGLOBIN 12.7 g/dL (13.5-17.5); LYMPHOCYTES # (AUTO) 2.9 K/uL (1.0-4.8); MEAN CORPUSCULAR HEMOGLOBIN 26.1 pg (26.0-34.0); MEAN CORPUSCULAR HGB CONC 32.4 G/dL (31.0-37.0); MEAN CORPUSCULAR VOLUME 81 fL (80-100); MONOCYTES # (AUTO) 0.9 K/uL (0.1-1.0); MONOCYTES % (AUTO) 12.9 % (2.0-9.0); NEUTROPHILS # (AUTO) 2.6 K/uL (1.8-7.7); NEUTROPHILS % (AUTO) 39.5 % (40.0-70.0); PLATELET COUNT (AUTO) 192 K/uL (150-450); RED BLOOD CELL COUNT(AUTO) 4.89 MIL/uL (4.50-5.90); RED CELL DISTRIBUTION WIDTH 12.6 % (11.5-14.5)
[2020-04-10 14:10] VITALS: BP 113/58
[2020-04-10 14:13] LABS: ANION GAP 11 mmol/L (8-16); CALCIUM, TOTAL 9.1 mg/dL (8.8-10.5); CARBON DIOXIDE 26 mmol/L (22-29); CHLORIDE 102 mmol/L (98-107); CREATININE 1.38 mg/dL (0.60-1.30); GLOMERULAR FILTR. RATE CALC > 60 mL/min (>60); GLUCOSE,RANDOM 167 mg/dL (70-110); POTASSIUM 4.1 mmol/L (3.5-5.1); SODIUM SERUM 139 mmol/L (136-145); UREA NITROGEN, BLOOD 19 mg/dL (7-18)
[2020-04-10 14:18] LABS: ALANINE AMINOTRANSFERASE 38 U/L (12-78); ALBUMIN 3.8 g/dL (3.4-5.0); ALKALINE PHOSPHATASE 121 U/L (46-116); ASPARTATE AMINOTRANSFERASE 16 U/L (15-37); BILIRUBIN,TOTAL 0.3 mg/dL (0.1-1.0); TOTAL PROTEIN, SERUM 7.4 g/dL (6.4-8.2)
== END 2020-04-10 16:03 | disposition home or self-care (01) ==
LOC: EMS 13:19
DX: R07.89 Other chest pain (principal); F20.9 Schizophrenia, unspecified; E11.9 Type 2 diabetes mellitus without complications; K21.9 Gastro-esophageal reflux disease without esophagitis; I10 Essential (primary) hypertension; Z95.0 Presence of cardiac pacemaker; Z88.0 Allergy status to penicillin
CPT/HCPCS: 36415; 71045; 80053; 84484; 85025; 93005; 96372; 99285; G0480; J1885

== ENCOUNTER 2020-11-18 17:24 | Emergency (ER) | payer OTHER ==
[~2020-11-18] VITALS: Ht 172.7 cm; Wt 75.0 kg
[~2020-11-18 17:24] MED LIST changes: -RISP2TAB23 PO; +RISP2TAB45 PO
[2020-11-18 20:10] VITALS: BP 126/75
== END 2020-11-18 20:48 | disposition home or self-care (01) ==
LOC: EMS 17:24
DX: F41.9 Anxiety disorder, unspecified (principal); E11.9 Type 2 diabetes mellitus without complications; K21.9 Gastro-esophageal reflux disease without esophagitis; I10 Essential (primary) hypertension; F20.9 Schizophrenia, unspecified; Z88.0 Allergy status to penicillin; Z95.0 Presence of cardiac pacemaker
CPT/HCPCS: 93005; 99283

== ENCOUNTER 2021-08-17 18:05 | Emergency (ER) | payer OTHER ==
[~2021-08-17] VITALS: Ht 175.3 cm; Wt 77.3 kg
[~2021-08-17 18:05] MED LIST changes: -HYD50 PO; +HYDR-4584 PO; -OLAN10TA3 PO; +OLAN10TA74 PO
[2021-08-17 21:30] VITALS: BP 122/78
== END 2021-08-17 23:14 | disposition home or self-care (01) ==
LOC: EMS 18:17
DX: F41.9 Anxiety disorder, unspecified (principal); F20.9 Schizophrenia, unspecified; I11.0 Hypertensive heart disease with heart failure; I50.9 Heart failure, unspecified; E11.9 Type 2 diabetes mellitus without complications; F32.9 Major depressive disorder, single episode, unspecified; Z88.0 Allergy status to penicillin; Z79.899 Other long term (current) drug therapy
CPT/HCPCS: 99283; Z7502